=== PATIENT | male | born 1955 | race African-American/Black ===

== ENCOUNTER 2016-05-15 15:13 | Inpatient (IN) ==
[2016-05-15] MEDS ORDERED: TYLENOL PO ONE (15:40)
[2016-05-15] MEDS ORDERED: NS 1,000 ML IV ONE ×3 (16:13→18:57)
--- NOTE | 2016-05-15 16:16 | PROVIDER DOCUMENTATION ---
HPI-Fever - General Chief Complaint: Fever Stated Complaint: WEAKNESS,DIAHRRHEA Time Seen by Provider: 05/15/16 15:54 Source: patient, family Allergies/Adverse Reactions: Patient Allergies Allergy/AdvReac Type Severity Reaction Status Date / Time No Known Allergies Allergy Verified 03/14/15 17:42 Home Medications: Home Medication List Medication Instructions Recorded Confirmed Last Taken Type Hydrocodone/Acetaminophen [[place] 1 each PO BID 05/16/16 05/16/16 Unknown History 7.5-325 Tablet] - History of Present Illness-Fever Nature of Presenting Problem: 61 year old AAM presents with c/o weakness for 2-3 weeks with subjective fever/ chills, dysuria, and intermittent diarrhea for the last 2-3 days. pt reports he has been drinking a liter a day of gin and not consuming much solid food. he reports the weakness has been getting progressively worse. sister at bedside who is his primary caregiver reports she found her brother in his home this morning with the thermostat set at 90 and wrapped up in blankets. pt reports he was so weak he was unable to walk across the room. pt reports he has been having black tarry stools for "quite awhile." Fever Severity/Quality: reports: subjective Onset/Duration: reports: unsure Timing: reports: still present, constant, getting worse Severity: reports: mild Recent Illness?: reports: none Fever Therapy PATTERN MAKER: Initiated none Cognitive Baseline: alert, oriented x3 Modifying Factors: improves with: analgesics Associated Symptoms: reports: diarrhea, dizziness, fatigue, fever/chills, genitourinary problems, loss of appetite, malaise, muscle aches Similar Symptoms Previously?: No - [place] Coma Score Best Eye Response ([place]): (4) open spontaneously Best Verbal Response ([place]): (5) oriented Best Motor Response (Maximo): (6) obeys commands [place] Total: 15 Review of Systems - Adult - REVIEW OF SYSTEMS - ADULT Constitutional: reports: see HPI, chills, fever, fatique, weight loss Eyes: reports: no symptoms reported. denies: discharge, blurred vision, double vision, redness Ears, Nose, Mouth & Throat: reports: no symptoms reported. denies: ear discharge, ear pain, nose pain, loose teeth, throat pain, throat swelling Cardiovascular: reports: no symptoms reported. denies: chest pain, palpitations , poor circulation, syncope Respiratory: reports: see HPI, shortness of breath. denies: chronic cough, cough, wheezing Gastrointestinal: reports: see HPI, abdominal pain, diarrhea, poor appetite. denies: hematemesis, constipation, difficulty swallowing, frequent heartburn, nausea, rectal bleeding, vomiting Genitourinary: reports: no symptoms reported. denies: dysuria, hematuria, urgency Musculoskeletal: reports: see HPI, muscle weakness. denies: bone pain, joint pain, joint swelling, neck pain Integumentary: reports: no symptoms reported. denies: hives, itching, skin sores/ulcer Neurological: reports: see HPI, dizziness/vertigo, loss of balance. denies: ataxia, headache/migraines, numbness, paresthesia, seizure, slurred speech, syncope, tremors Psychiatric: reports: see HPI, alcohol/drug dependence Endocrine: reports: no symptoms reported Hematologic/Lymphatic: reports: no symptoms reported Allergic/Immunologic: reports: no symptoms reported All Other Systems: Reviewed and Negative Past History - Adult - PAST MEDICAL HISTORY-ADULT Review of Records: reports: Old Records Reviewed, Nursing Assessment Review, Medications Reviewed, Social history reviewed & non-contributory. Major Childhood Illnesses: reports: denies history Cardiovascular: reports: HTN Respiratory: reports: denies history Gastrointestinal: reports: denies history Obstetrical/Gynecological: reports: denies history Genitourinary: reports: denies history Musculoskeletal: reports: denies history Neurological: reports: denies history Psychiatric: reports: depression Endocrine/Immune: reports: denies history Other Conditions: reports: denies history - PRIOR SURGERIES/PROCEDURES Surgical/Procedure History: reports: none - IMMUNIZATION STATUS Childhood Immunizations: See Nurse Assessment Flu Vaccine: See Nurse Assessment - FAMILY HISTORY Family History: reviewed, not pertinent - SOCIAL HISTORY Smoking: cigarettes, greater than 1 pack/day Provider spent 3-5 mins advising pt. on dangers of tobacco.: Discussed manners to quit use, and f/u contacts for add'l counseling. Substance Use: alcohol Alcohol Use Frequency: every day Number of drinks per typical drinking period:: >20 drinks (pt reports he comsumes a liter a day of gin.) Living Situation: alone Physical Exam-General - PHYSICAL EXAM-ADULT Initial Vital Signs Reviewed: Yes - CONSTITUTIONAL General Appearance: appears well, alert, no apparent distress, cachetic, thin, other (weight loss, unknown amount over unknown period of time.). negative: mild distress, moderate distress - EYES Eyes: pink conjunctivae, scleral icterus, sunken eyes. negative: conjuctival exudate, pale conjunctivae - HEAD, EARS, NOSE, MOUTH & THROAT HENMT: normocephalic/atraumatic, moist mucous membranes, normal ENT inspection, TMs normal, pharynx normal - NECK Neck: non-tender, full range of motion, supple, normal inspection. negative: C- spine tenderness, limited range of motion, tender lateral, tender midline - RESPIRATORY Respiratory: chest non-tender, lungs clear, normal breath sounds, no pleuratic chest pain, no respiratory distress, no accessory muscle use. negative: respiratory distress, decreased breath sounds, accessory muscle use, crackles, rales, rhonchi, stridor, wheezing - CARDIOVASCULAR Cardiovascular: normal peripheral pulses, regular rate, rhythm, no edema, no gallop, no JVD, no murmur, tachycardia - GASTROINTESTINAL (ABDOMEN) Abdominal Exam: normal bowel sounds, soft, no organomegaly, no pulsatile mass, tenderness (diffuse). negative: non tender, distended, guarding, rigid - LYMPHATIC Lymphatic: no adenopathy. negative: cervical node tenderness - MUSCULOSKELETAL Back Exam: normal inspection, no CVA tenderness, no vertebral tenderness. negative: CVA tenderness, decreased range of motion, swelling, vertebral tenderness Extremity: normal range of motion, non-tender, normal gait, normal inspection, no pedal edema, no calf tenderness, normal capillary refill, pelvis stable. negative: deformity, erythema, inflammation, joint effusion, slow capillary refill, swelling, tenderness Peripheral Pulses: radial (R): 3+, radial (L): 3+, dorsalis-pedis (R): 3+, dorsalis-pedis (L): 3+ - SKIN Integumentary: normal color, normal turgor, warm/dry. negative: blanching, cyanosis, pallor, petechiae, purpura, rash - NEUROLOGIC Neurologic: grossly normal, no motor/sensory deficits - PSYCHIATRIC Psych/Mental Status: normal mood/affect, normal thought content, normal thought process, oriented x 3 Progress - PLAN OF CARE/RESULTS Progress/Plan/Lab Results: Laboratory Results - last 24 hr 05/15/16 05/15/16 05/15/16 15:30 16:30 16:45 Magnesium Plasma Lactate 2.7 H Urine Source CLEAN CATCH Urine Color YELLOW Urine Clarity SL. CLOUDY A Urine pH 5.0 Ur Specific [place] 1.025 Urine Protein TRACE A Urine Ketones TRACE Urine Blood TRACE Urine Nitrite POSITIVE A Urine Bilirubin NEGATIVE Urine Urobilinogen NORMAL Urine Microscopic RBC <10 Urine WBC 1+ A Urine Microscopic WBC <10 Urine Glucose NEGATIVE Urine Opiates Screen Ur Oxycodone Screen Urine Methadone Screen Ur Barbituates Screen Ur Tricyclics Screen Ur Phencyclidine Scrn Ur Amphetamines Screen U Methamphetamines Scrn Urine MDMA Screen U Benzodiazepines Scrn Urine Cocaine Screen U Cannabinoids Screen Acetone Level Blood Type O POSITIVE Antibody Screen NEGATIVE 05/15/16 05/15/16 05/15/16 16:45 17:00 17:00 Magnesium 1.6 Plasma Lactate Urine Source Urine Color Urine Clarity Urine pH Ur Specific [place] Urine Protein Urine Ketones Urine Blood Urine Nitrite Urine Bilirubin Urine Urobilinogen Urine Microscopic RBC Urine WBC Urine Microscopic WBC Urine Glucose Urine Opiates Screen Cancelled Ur Oxycodone Screen Cancelled Urine Methadone Screen Cancelled Ur Barbituates Screen Cancelled Ur Tricyclics Screen Cancelled Ur Phencyclidine Scrn Cancelled Ur Amphetamines Screen Cancelled U Methamphetamines Scrn Cancelled Urine MDMA Screen Cancelled U Benzodiazepines Scrn Cancelled Urine Cocaine Screen Cancelled U Cannabinoids Screen Cancelled Acetone Level NEGATIVE Blood Type Antibody Screen 05/15/16 17:30 Magnesium Plasma Lactate Urine Source Urine Color Urine Clarity Urine pH Ur Specific [place] Urine Protein Urine Ketones Urine Blood Urine Nitrite Urine Bilirubin Urine Urobilinogen Urine Microscopic RBC Urine WBC Urine Microscopic WBC Urine Glucose Urine Opiates Screen NONE DETECTED Ur Oxycodone Screen NONE DETECTED Urine Methadone Screen NONE DETECTED Ur Barbituates Screen NONE DETECTED Ur Tricyclics Screen NONE DETECTED Ur Phencyclidine Scrn NONE DETECTED Ur Amphetamines Screen NONE DETECTED U Methamphetamines Scrn NONE DETECTED Urine MDMA Screen NONE DETECTED U Benzodiazepines Scrn NONE DETECTED Urine Cocaine Screen NONE DETECTED U Cannabinoids Screen PRESUMPTIVE POSITIVE A Acetone Level Blood Type Antibody Screen Orders Category Date Time Status Orthostatic Vital Signs NOW Care 05/15/16 16:13 Active Saline Loc DIRECTED Care 05/15/16 16:12 Active Saline Loc NOW Care 05/15/16 18:11 Completed NPO Diet 05/15/16 16:12 Completed CHEST-2 VIEWS [RAD] Stat Exams 05/15/16 17:59 Draft HEAD W/O CONTRAST [CT] Stat Exams 05/15/16 17:56 Draft ACETONE SERUM [CHEM] Stat Lab 05/15/16 17:00 Completed AMMONIA [CHEM] Stat Lab 05/15/16 16:30 Completed AMYLASE [CHEM] Stat Lab 05/15/16 16:30 Completed BLOOD CULTURE [BLDCUL] Stat Lab 05/15/16 15:40 Results C DIFF TOXIN PL Stat Lab 05/15/16 18:52 Ordered CBC WITH ELECTRONIC DIFF [HEME] Stat Lab 05/15/16 16:30 Completed COMPREHENSIVE METABOLIC PANEL [CHEM] Stat Lab 05/15/16 16:30 Completed ETOH [ALCOHOL BLOOD] Stat Lab 05/15/16 16:30 Completed Flu [INFLUENZA SCREEN PL] Stat Lab 05/15/16 15:20 Completed LACTATE, PLASMA [CHEM] Stat Lab 05/15/16 15:30 Completed LIPASE [CHEM] Stat Lab 05/15/16 16:30 Completed MAGNESIUM [CHEM] Stat Lab 05/15/16 17:00 Completed OCCULT BLOOD SCREEN STOOL PL Stat Lab 05/15/16 18:52 Uncollected PROTIME WITH INR PL [COAG] Stat Lab 05/15/16 16:[address] [COAG] Stat Lab 05/15/16 16:30 Completed STOOL CULTURE [RM] Stat Lab 05/15/16 18:52 Uncollected TYPE & SCREEN [BBK] Stat Lab 05/15/16 16:[address] W/POSS RFLX CULT [URINALYSIS] Stat Lab 05/15/16 16:45 Completed URINE DRUG SCREEN PL Routine Lab 05/15/16 17:30 Completed WBC STOOL [STOOL] Stat Lab 05/15/16 18:52 Uncollected 0.9% Sodium Chloride Inj [Ns] 1,000 ml Med 05/15/16 16:28 Discontinued IV 150 mls/hr 0.9% Sodium Chloride Inj [Ns] 1,000 ml Med 05/15/16 16:13 Discontinued IV 999 mls/hr 0.9% Sodium Chloride Inj [Ns] 1,000 ml Med 05/15/16 18:57 Discontinued IV 999 mls/hr Acetaminophen [Tylenol] Med 05/15/16 15:40 Discontinued 650 mg PO NOW ONE Azithromycin 500 mg/Ns [Zithromax 500 mg/Ns] Med 05/15/16 18:52 Discontinued 500 mg in 250 ml IV NOW CefTRIAXONE 1 GM/NS [Rocephin 1 gm/Ns] Med 05/15/16 18:11 Discontinued 1 gm in 50 ml IV NOW Potassium Chloride 10 Meq/Swi Med 05/15/16 17:44 Discontinued 10 meq in 100 ml IV ONCE Potassium Chloride 10 Meq/Swi Med 05/15/16 18:53 Discontinued 10 meq in 100 ml IV ONCE Potassium Chloride E.r. [Klor-Con] Med 05/15/16 17:46 Discontinued 40 meq PO NOW ONE Vital Signs - 24 hr 05/15/16 15:33 05/15/16 16:40 Temperature 100.3 F H Pulse Rate 119 H Pulse Rate [Sitting] 111 H Pulse Rate [Standing] 118 H Pulse Rate [Supine] 100 H Respiratory Rate 18 Blood Pressure 146/74 Blood Pressure [Sitting] 106/63 Blood Pressure [Standing] 88/58 Blood Pressure [Supine] 119/65 Reviewed radiology, labs with Dr. Goldberg, agrees with plan of care, admission. 1930: Dr. Naranjo at bedside for admission. Laboratory Tests 05/15/16 05/15/16 05/15/16 15:20 15:30 16:30 WBC RBC Hgb Hct MCV MCH MCHC RDW Std Deviation Plt Count MPV Immature Gran % (Auto) Neut % (Auto) Lymph % (Auto) [place] % (Auto) Eos % (Auto) Baso % (Auto) Immature Gran # (Auto) Neut # (Auto) Lymph # (Auto) [place] # (Auto) Eos # (Auto) Baso # (Auto) PT INR APTT (Factor Assay) Sodium 132 L Potassium 2.1 L* Chloride 88 L Carbon Dioxide 28 Anion Gap 16 BUN 15 Creatinine 1.0 Estimated GFR/1.73 m2 > 60 BUN/Creatinine Ratio 15 Glucose 199 H Calculated Osmolality 271 Calcium 8.7 L Magnesium Total Bilirubin 1.50 H AST 71 H ALT 35 Alkaline Phosphatase 89 Ammonia Total Protein 7.9 Albumin 3.3 L Globulin 5.0 Albumin/Globulin Ratio 1.0 Amylase 67 Lipase 30 Plasma Lactate 2.7 H Urine Source Urine Color Urine Clarity Urine pH Ur Specific [place] Urine Protein Urine Ketones Urine Blood Urine Nitrite Urine Bilirubin Urine Urobilinogen Urine Microscopic RBC Urine WBC Urine Microscopic WBC Urine Glucose Urine Opiates Screen Ur Oxycodone Screen Urine Methadone Screen Ur Barbituates Screen Ur Tricyclics Screen Ur Phencyclidine Scrn Ur Amphetamines Screen U Methamphetamines Scrn Urine MDMA Screen U Benzodiazepines Scrn Urine Cocaine Screen U Cannabinoids Screen Plasma/Serum Ethyl Alc Acetone Level Influenza A (Rapid) NEGATIVE Influenza B (Rapid) NEGATIVE Blood Type Antibody Screen 05/15/16 05/15/16 05/15/16 16:30 16:30 16:30 WBC 11.20 H RBC 3.27 L Hgb 11.0 L Hct 32.9 L MCV 100.6 H MCH 33.6 H MCHC 33.4 RDW Std Deviation 12.4 Plt Count 195 MPV 10.5 H Immature Gran % (Auto) 1.3 H Neut % (Auto) 83.2 H Lymph % (Auto) 6.4 L Parke % (Auto) 8.8 Eos % (Auto) 0.1 Baso % (Auto) 0.2 Immature Gran # (Auto) 0.15 H Neut # (Auto) 9.32 H Lymph # (Auto) 0.72 L [place] # (Auto) 0.98 H Eos # (Auto) 0.01 Baso # (Auto) 0.02 PT INR APTT (Factor Assay) Sodium Potassium Chloride Carbon Dioxide Anion Gap BUN Creatinine Estimated GFR/1.73 m2 BUN/Creatinine Ratio Glucose Calculated Osmolality Calcium Magnesium Total Bilirubin AST ALT Alkaline Phosphatase Ammonia 38 Total Protein Albumin Globulin Albumin/Globulin Ratio Amylase Lipase Plasma Lactate Urine Source Urine Color Urine Clarity Urine pH Ur Specific [place] Urine Protein Urine Ketones Urine Blood Urine Nitrite Urine Bilirubin Urine Urobilinogen Urine Microscopic RBC Urine WBC Urine Microscopic WBC Urine Glucose Urine Opiates Screen Ur Oxycodone Screen Urine Methadone Screen Ur Barbituates Screen Ur Tricyclics Screen Ur Phencyclidine Scrn Ur Amphetamines Screen U Methamphetamines Scrn Urine MDMA Screen U Benzodiazepines Scrn Urine Cocaine Screen U Cannabinoids Screen Plasma/Serum Ethyl Alc 72 H Acetone Level Influenza A (Rapid) Influenza B (Rapid) Blood Type Antibody Screen 05/15/16 05/15/16 05/15/16 16:30 16:30 16:45 WBC RBC Hgb Hct MCV MCH MCHC RDW Std Deviation Plt Count MPV Immature Gran % (Auto) Neut % (Auto) Lymph % (Auto) Parke % (Auto) Eos % (Auto) Baso % (Auto) Immature Gran # (Auto) Neut # (Auto) Lymph # (Auto) [place] # (Auto) Eos # (Auto) Baso # (Auto) PT 12.9 INR 0.94 APTT (Factor Assay) 39.7 Sodium Potassium Chloride Carbon Dioxide Anion Gap BUN Creatinine Estimated GFR/1.73 m2 BUN/Creatinine Ratio Glucose Calculated Osmolality Calcium Magnesium Total Bilirubin AST ALT Alkaline Phosphatase Ammonia Total Protein Albumin Globulin Albumin/Globulin Ratio Amylase Lipase Plasma Lactate Urine Source CLEAN CATCH Urine Color YELLOW Urine Clarity SL. CLOUDY A Urine pH 5.0 Ur Specific [place] 1.025 Urine Protein TRACE A Urine Ketones TRACE Urine Blood TRACE Urine Nitrite POSITIVE A Urine Bilirubin NEGATIVE Urine Urobilinogen NORMAL Urine Microscopic RBC <10 Urine WBC 1+ A Urine Microscopic WBC <10 Urine Glucose NEGATIVE Urine Opiates Screen Ur Oxycodone Screen Urine Methadone Screen Ur Barbituates Screen Ur Tricyclics Screen Ur Phencyclidine Scrn Ur Amphetamines Screen U Methamphetamines Scrn Urine MDMA Screen U Benzodiazepines Scrn Urine Cocaine Screen U Cannabinoids Screen Plasma/Serum Ethyl Alc Acetone Level Influenza A (Rapid) Influenza B (Rapid) Blood Type O POSITIVE Antibody Screen NEGATIVE 05/15/16 05/15/16 05/15/16 16:45 17:00 17:00 WBC RBC Hgb Hct MCV MCH MCHC RDW Std Deviation Plt Count MPV Immature Gran % (Auto) Neut % (Auto) Lymph % (Auto) [place] % (Auto) Eos % (Auto) Baso % (Auto) Immature Gran # (Auto) Neut # (Auto) Lymph # (Auto) [place] # (Auto) Eos # (Auto) Baso # (Auto) PT INR APTT (Factor Assay) Sodium Potassium Chloride Carbon Dioxide Anion Gap BUN Creatinine Estimated GFR/1.73 m2 BUN/Creatinine Ratio Glucose Calculated Osmolality Calcium Magnesium 1.6 Total Bilirubin AST ALT Alkaline Phosphatase Ammonia Total Protein Albumin Globulin Albumin/Globulin Ratio Amylase Lipase Plasma Lactate Urine Source Urine Color Urine Clarity Urine pH Ur Specific [place] Urine Protein Urine Ketones Urine Blood Urine Nitrite Urine Bilirubin Urine Urobilinogen Urine Microscopic RBC Urine WBC Urine Microscopic WBC Urine Glucose Urine Opiates Screen Cancelled Ur Oxycodone Screen Cancelled Urine Methadone Screen Cancelled Ur Barbituates Screen Cancelled Ur Tricyclics Screen Cancelled Ur Phencyclidine Scrn Cancelled Ur Amphetamines Screen Cancelled U Methamphetamines Scrn Cancelled Urine MDMA Screen Cancelled U Benzodiazepines Scrn Cancelled Urine Cocaine Screen Cancelled U Cannabinoids Screen Cancelled Plasma/Serum Ethyl Alc Acetone Level NEGATIVE Influenza A (Rapid) Influenza B (Rapid) Blood Type Antibody Screen 05/15/16 17:30 WBC RBC Hgb Hct MCV MCH MCHC RDW Std Deviation Plt Count MPV Immature Gran % (Auto) Neut % (Auto) Lymph % (Auto) [place] % (Auto) Eos % (Auto) Baso % (Auto) Immature Gran # (Auto) Neut # (Auto) Lymph # (Auto) [place] # (Auto) Eos # (Auto) Baso # (Auto) PT INR APTT (Factor Assay) Sodium Potassium Chloride Carbon Dioxide Anion Gap BUN Creatinine Estimated GFR/1.73 m2 BUN/Creatinine Ratio Glucose Calculated Osmolality Calcium Magnesium Total Bilirubin AST ALT Alkaline Phosphatase Ammonia Total Protein Albumin Globulin Albumin/Globulin Ratio Amylase Lipase Plasma Lactate Urine Source Urine Color Urine Clarity Urine pH Ur Specific [place] Urine Protein Urine Ketones Urine Blood Urine Nitrite Urine Bilirubin Urine Urobilinogen Urine Microscopic RBC Urine WBC Urine Microscopic WBC Urine Glucose Urine Opiates Screen NONE DETECTED Ur Oxycodone Screen NONE DETECTED Urine Methadone Screen NONE DETECTED Ur Barbituates Screen NONE DETECTED Ur Tricyclics Screen NONE DETECTED Ur Phencyclidine Scrn NONE DETECTED Ur Amphetamines Screen NONE DETECTED U Methamphetamines Scrn NONE DETECTED Urine MDMA Screen NONE DETECTED U Benzodiazepines Scrn NONE DETECTED Urine Cocaine Screen NONE DETECTED U Cannabinoids Screen PRESUMPTIVE POSITIVE A Plasma/Serum Ethyl Alc Acetone Level Influenza A (Rapid) Influenza B (Rapid) Blood Type Antibody Screen Orders Category Date Time Status Admit - [facility] Routine AdmDCTranf 05/15/16 19:47 Ordered Orthostatic Vital Signs NOW Care 05/15/16 16:13 Active Saline Loc DIRECTED Care 05/15/16 16:12 Active Saline Loc NOW Care 05/15/16 18:11 Completed Case Management Consult Routine Cons 05/15/16 23:43 Active Social Service Consult Routine Cons 05/15/16 23:43 Active Heart Healthy Diet Diet 05/16/16 15:16 Active NPO Diet 05/15/16 16:12 Completed CHEST-2 VIEWS [RAD] Stat Exams 05/15/16 17:59 Draft HEAD W/O CONTRAST [CT] Stat Exams 05/15/16 17:56 Draft cxr [CHEST-PORTABLE] [RAD] Routine Exams 05/16/16 16:05 Ordered ACETONE SERUM [CHEM] Stat Lab 05/15/16 17:00 Completed AMMONIA [CHEM] Stat Lab 05/15/16 16:30 Completed AMYLASE [CHEM] Stat Lab 05/15/16 16:30 Completed BLOOD CULTURE [BLDCUL] Stat Lab 05/15/16 15:40 Results C DIFF TOXIN PL Stat Lab 05/15/16 18:52 Ordered CBC WITH DIFF [HEME] Routine Lab 05/17/16 06:00 Ordered CBC WITH ELECTRONIC DIFF [HEME] Stat Lab 05/15/16 16:30 Completed COMPREHENSIVE METABOLIC PANEL [CHEM] Stat Lab 05/15/16 16:30 Completed Chem22 [COMPREHENSIVE METABOLIC PANEL] [CHEM] Routine Lab 05/17/16 06:00 Ordered ETOH [ALCOHOL BLOOD] Stat Lab 05/15/16 16:30 Completed FOLATE Routine Lab 05/17/16 06:00 Ordered FREE T4 Routine Lab 05/17/16 06:00 Ordered Flu [INFLUENZA SCREEN PL] Stat Lab 05/15/16 15:20 Completed LACTATE, PLASMA [CHEM] Stat Lab 05/15/16 15:30 Completed LIPASE [CHEM] Stat Lab 05/15/16 16:30 Completed MAGNESIUM [CHEM] Routine Lab 05/17/16 06:00 Ordered MAGNESIUM [CHEM] Stat Lab 05/15/16 17:00 Completed OCCULT BLOOD SCREEN STOOL PL Stat Lab 05/15/16 18:52 Uncollected PROTIME WITH INR PL [COAG] Stat Lab 05/15/16 16:[address] [COAG] Stat Lab 05/15/16 16:30 Completed STOOL CULTURE [RM] Stat Lab 05/15/16 18:52 Uncollected TSH Routine Lab 05/17/16 06:00 Ordered TYPE & SCREEN [BBK] Stat Lab 05/15/16 16:[address] W/POSS RFLX CULT [URINALYSIS] Stat Lab 05/15/16 16:45 Completed URINE DRUG SCREEN PL Routine Lab 05/15/16 17:30 Completed VITAMIN B12 Routine Lab 05/17/16 06:00 Ordered WBC STOOL [STOOL] Stat Lab 05/15/16 18:52 Uncollected 0.9% Sodium Chloride Inj [Ns] 1,000 ml Med 05/15/16 16:28 Discontinued IV 150 mls/hr 0.9% Sodium Chloride Inj [Ns] 1,000 ml Med 05/15/16 16:13 Discontinued IV 999 mls/hr 0.9% Sodium Chloride Inj [Ns] 1,000 ml Med 05/15/16 18:57 Discontinued IV 999 mls/hr Acetaminophen [Tylenol] Med 05/15/16 15:40 Discontinued 650 mg PO NOW ONE Acetaminophen [Tylenol] Med 05/16/16 01:36 Active 650 mg PO Q4H PRN PRN Azithromycin 500 mg/Ns [Zithromax 500 mg/Ns] Med 05/15/16 18:52 Discontinued 500 mg in 250 ml IV NOW CefTRIAXONE 1 GM/NS [Rocephin 1 gm/Ns] Med 05/15/16 18:11 Discontinued 1 gm in 50 ml IV NOW Ns + KCl 20 Meq 1,000 ml Med 05/15/16 19:57 Active IV 125 mls/hr Pantoprazole [Protonix] Med 05/15/16 20:00 Active 40 mg IV Q12H Potassium Chloride 10 Meq/Swi Med 05/15/16 17:44 Discontinued 10 meq in 100 ml IV ONCE Potassium Chloride 10 Meq/Swi Med 05/15/16 18:53 Discontinued 10 meq in 100 ml IV ONCE Potassium Chloride E.r. [Klor-Con] Med 05/15/16 17:46 Discontinued 40 meq PO NOW ONE Sodium Chloride 0.9% Med 05/15/16 20:00 Active 10 ml INJ DIRECTED Sodium Chloride 0.9% 10 ml Med 05/15/16 21:40 Discontinued .ROUTE As Directed Vital Signs - 24 hr 05/15/16 20:00 05/16/16 00:00 05/16/16 04:00 Temperature 98.5 F 100.8 F H 99.0 F Pulse Rate 93 H 98 H 83 Respiratory Rate 18 18 18 Blood Pressure 138/74 154/89 154/79 O2 Sat by Pulse Oximetry 95 05/16/16 07:34 05/16/16 12:00 Temperature 98.6 F 98.4 F Pulse Rate 84 79 Respiratory Rate 16 16 Blood Pressure 158/85 146/81 O2 Sat by Pulse Oximetry 100 100 Result Diagrams: 05/15/16 16:30 05/15/16 16:30 - XRAY 1 XRAY Study: Chest Impression: Abnormal (RLL, RML pneumonia) - CT/MRI 1 CT Study: Head Impression: Normal - CONSULTS/PCP/HOSPITALIST Notification #1 *Consult/PCP/Hospitalist*: Dr. Naranjo Time Discussed: 18:57 Consult Disposition: Will see in ED, Admit Departure - Departure Time of Disposition Decision: 17:48 DIAGNOSIS: Hypokalemia, Weakness, ETOH abuse Fever Qualifiers: Fever type: unspecified Qualified Code(s): R50.9 - Fever, unspecified Pneumonia Qualifiers: Pneumonia type: due to unspecified organism Laterality: right Lung location: middle lobe of lung Qualified Code(s): J18.1 - Lobar pneumonia, unspecified organism Disposition: HOME 01 Certified Medical Emergency: Emergent Condition: Stable Attestation - Physician/ JOHN Attestation Patient care was provided by Advanced Practice Provider:: Yes Advanced Practice Provider:: Sho Moran Advanced Practice Provider documentation review:: The Mid-level provider documentation, treatment plan and medical decision making was reviewed by the physician who agrees with all treatment and medical decision making by the MLP.
[2016-05-15 16:44] LABS: MANUAL DIFF NEEDED? NO
[2016-05-15 16:47] LABS: BASO% 0.2 % (0.0-0.8); EOS# 0.01 X1000 (0.0-0.7); EOS% 0.1 % (0.0-10.0); HEMATOCRIT 32.9 % (42.0-52.0); IMM GRAN# 0.15 X1000 (0.0-0.04); IMM GRAN% 1.3 % (0.0-0.5); LYMPH# 0.72 X1000 (1.2-3.4); LYMPH% 6.4 % (20.5-51.1); MCH 33.6 PG (27-31); MCHC 33.4 g/dL (33-37); MCV 100.6 FL (81-99); MONO# 0.98 X1000 (0.11-0.59); MONO% 8.8 % (1.7-9.3); MPV 10.5 FL (7.4-10.4); NEUT% 83.2 % (42.2-75.2); PLT 195 X1000 (130-400); RBC 3.27 XMIL (4.7-6.1)
[2016-05-15 17:04] LABS: INR 0.94 (0.86-1.15); PROTIME 12.9 Seconds (12.1-15.5)
[2016-05-15 17:05] LABS: PTT PL 39.7 Seconds (22.6-43.9)
[2016-05-15 17:07] LABS: AGAP 16; ALBUMIN 3.3 g/dL (3.5-5.0); ALKALINE PHOSPHATASE 89 U/L (32-122); AMYLASE 67 U/L (20-200); BUN 15 mg/dL (8-22); CALCIUM 8.7 mg/dL (8.8-10.2); CHLORIDE 88 mmol/L (98-107); COSMO 271; GOT 71 U/L (10-34); GPT 35 U/L (10-44); LIPASE 30 U/L (13-60); SODIUM 132 mmol/L (136-145); TCO2 28 mmol/L (25-35); TOTAL PROTEIN 7.9 g/dL (6.3-8.3)
[2016-05-15 17:07] LABS: URINE CULTURE PL NEEDED? NO
[2016-05-15 17:10] LABS: POTASSIUM 2.1 mmol/L (3.5-5.1)
[2016-05-15] MEDS ORDERED: POTASSIUM CHLORIDE 10 MEQ/SWI 10 MEQ/100 ML IVPB IV ONE ×2 (17:44→18:53)
[2016-05-15] MEDS ORDERED: KLOR-CON PO ONE (17:46)
[2016-05-15 18:05] LABS: UR AMPHETAMINES QUAL NONE DETECTED (NONE DETECT); UR BARBITUATES QUAL NONE DETECTED (NONE DETECT); UR BENZODIAZEPIN QUAL NONE DETECTED (NONE DETECT); UR CANNABINOIDS QUAL PRESUMPTIVE POSITIVE (NONE DETECT); UR COCAINE QUAL NONE DETECTED (NONE DETECT); UR MDMA QUAL NONE DETECTED (NONE DETECT); UR METHADONE QUAL NONE DETECTED (NONE DETECT); UR METHAMPHETAMINE QUAL NONE DETECTED (NONE DETECT); UR OPIATES QUAL NONE DETECTED (NONE DETECT); UR OXYCODONE QUAL NONE DETECTED (NONE DETECT); UR PCP QUAL NONE DETECTED (NONE DETECT); UR TCA QUAL NONE DETECTED (NONE DETECT)
[2016-05-15 18:07] LABS: BILIRUBIN URINE NEGATIVE (NEGATIVE); BLOOD URINE TRACE (NEGATIVE); CLARITY SL. CLOUDY (CLEAR); COLOR YELLOW; GLUCOSE URINE NEGATIVE (NEGATIVE); LEUKOCYTES URINE 1+ (NEGATIVE); NITRITE URINE POSITIVE (NEGATIVE); PROTEIN URINE TRACE mg/dL (NEGATIVE); SP GRAVITY URINE 1.025; UROBILINOGEN URINE NORMAL
[2016-05-15 18:08] LABS: URINE SOURCE CLEAN CATCH
[2016-05-15 18:09] LABS: URINE RBC <10 /HPF (<10); URINE WBC <10 /HPF (<10)
[2016-05-15] MEDS ORDERED: ROCEPHIN 1 GM/NS 1 GM/50 ML IVPB IV ONE (18:11)
[2016-05-15] MEDS ORDERED: ZITHROMAX 500 MG/NS 500 MG/250 ML IVPB IV ONE (18:52)
[2016-05-15] MEDS ORDERED: SODIUM CHLORIDE 0.9% 10 ML ONE (21:40)
--- NOTE | 2016-05-15 21:43 | Diag Imaging Result Document ---
PROCEDURE NAME: HEAD W/O CONTRAST - 05/15/2016 CT OF THE HEAD: A CT dose reduction protocol was used. COMPARISON: None. 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 There is some mild scattered chronic microvascular disease. No intracranial mass or hemorrhage. Old lacune at the left basal ganglia. There is chronic sinusitis of the right maxillary sinus. IMPRESSION: Chronic changes as described above. No acute disease. [facility]
[2016-05-15] MEDS: PROTONIX IV SCH (21:48)
[2016-05-15] MEDS: NS + KCL 20 MEQ 1,000 ML IV SCH (21:49)
[2016-05-16] MEDS ORDERED: TYLENOL PO PRN (01:36)
--- NOTE | 2016-05-16 03:20 | HISTORY AND PHYSICAL ---
HISTORY OF PRESENT ILLNESS: This is a 61-year-old who has apparently been feeling bad. He had lost his just about a month ago, been drinking well over a quart a day of alcohol. History of alcoholism in the past. His family tried to get him to come to the door. He would not answer the phone. He was too week, complaining of some diarrhea. PAST MEDICAL HISTORY: 1. Discoid lupus. 2. Osteoarthritis. 3. Benign prostatic hypertrophy. 4. He denies fever or chills. 5. He also has a history of gout. 6. Prior cerebrovascular accident. 7. Sleep disorder. 8. Hypertension. PAST SURGICAL HISTORY: He has had back surgery in the past, kyphoplasty on T6 I believe, fall related to work. FAMILY HISTORY: Noncontributory except for father had colon cancer. ALLERGIES: No known drug allergies. SOCIAL HISTORY: Drinks pretty heavily and no tobacco. REVIEW OF SYSTEMS: Constitutional: Feels like he has lost weight. He feels much weaker. HEENT: He denies any change in vision. Respiratory: No increased work of breathing or dyspnea. Cardiovascular: No chest pain or tachy palpitation. GI: Unremarkable. : Unremarkable. Musculoskeletal/Neurologic: No complaints other than general weakness. PHYSICAL EXAMINATION: VITAL SIGNS: In the emergency room at [facility], temperature was a 100.3 degrees, pulse 119, respirations 18, blood pressure 146/74. Sitting, his pulse was 111, blood pressure 106/63. Standing pulse 118, blood pressure 80/58. Supine pulse 100, blood pressure 119/65. Weight 135 pounds, height 5 feet 10 inches. HEENT: The pupils were equal, round. LUNGS: Clear in all lung shah. Clear anterior and posterior. CARDIOVASCULAR: Regular rhythm and rate without murmur or S3. ABDOMEN: Soft. SKIN: Warm and dry. He has vitiligo of his forehead and patches from his discoid lupus. LABORATORIES: White count 11,200, hematocrit 32, platelet count 195,000. Sodium 132, potassium 2.1, chloride 88, bicarb 28, BUN 15, creatinine 1, blood sugar 199, calcium 8.7, magnesium 1.6. Total bilirubin was 1.5. Transaminases, AST 71, ALT 35. Ammonia is 38, albumin 3.3, amylase 67, lipase 30. Prothrombin time is 12.9, PTT is 39. Influenza A and B were negative. Drug screen negative except for cannabinoids and positive for alcohol, ethanol level was 72 mg/dL. Urinalysis unremarkable. MEDICATIONS AT HOME: He is supposed to be on allopurinol 300 mg a day, alprazolam 0.5 mg daily, Cardiotek vitamin I think 1 a day, Proscar 5 mg daily, tamsulosin 0.4 mg at bedtime. ASSESSMENT AND PLAN: 1. X-ray suggested pneumonia. Patient very weak and puny. He does not have an elevated white count. Potassium is very low. We will give him some fluid. We will give some potassium and see if he feels a little better. We will put him on some Rocephin 1 g daily. 2. History of alcoholism. Very strong possibility he could go through alcohol withdrawals, even delirium tremens. Aware of that. 3. Depression. 4. Anorexia, not eating much. We will see if we can encourage and get oral intake. 5. He does have a history gout. 6. History of benign prostatic hypertrophy. 7. History of prior cerebrovascular accident, aware. cc: Dennys Walls MD
[2016-05-16] MEDS: NS + KCL 20 MEQ 1,000 ML IV SCH ×5 (03:26→22:36)
[2016-05-16] MEDS: PROTONIX IV SCH ×2 (09:40→22:31)
--- NOTE | 2016-05-16 11:36 | Diag Imaging Result Document ---
PROCEDURE NAME: CHEST-2 VIEWS - 05/15/2016 CHEST, 2 VIEWS: COMPARISON: 03/14/2015. FINDINGS: There is worsening ill-defined infiltrate in the right lower lobe and right mid lung, probably the right upper lobe as well. Lung volumes are low with increasing linear atelectasis or scarring in the lung bases. Stable vertebroplasty changes in the mid and lower thoracic spine. No obvious new fractures. No pneumothorax or large effusion. IMPRESSION: New bilateral infiltrates compatible with pneumonia.
[2016-05-16] MEDS ORDERED: BISMATROL PO PRN (17:29)
--- NOTE | 2016-05-16 17:34 | PROGRESS NOTE ---
DATE: 05/16/2016 SUBJECTIVE: He is sitting up. Feeling much better. States he is eating pretty good. Alert and oriented x3. His family is at bedside. OBJECTIVE: Vital signs: Temperature 98.4 degrees, pulse 79, respirations 16, blood pressure 140/81. HEENT: Pupils are equal and round. Neck: CVP less than 6 cm. Lungs: Clear in all lung shah. Cardiovascular: Regular rhythm and rate without murmur or S3. URINE OUTPUT: 2600 mL. LABORATORIES: Reviewed from yesterday white count 11,200, hematocrit 32, platelet count a 195,000. Chemistries was sodium 132, potassium 2.1, chloride 88, bicarb 28, BUN 15, creatinine 1.0, albumin was 3.3. ASSESSMENT AND PLAN: 1. Appears to show pneumonia on x-ray, elevated white count. Continue present antibiotics, Rocephin, and breathing treatments. Appears clinically better. 2. Alcoholism. He has been off alcohol, will be going on 72 hours. No sign of significant withdrawals, but still possibility of delirium tremens. 3. Depression. 4. Anorexia and depression. Just lost his and is not eating much. 5. History of gout. 6. History of benign prostatic hypertrophy. 7. History of prior cerebrovascular accident. He had a CT of his head without contrast, which is unremarkable. Check some blood work again in the morning. We will supplement some more potassium. Reviewed his orders. No changes. cc: Dennys Walls MD
[2016-05-16] MEDS ORDERED: IMODIUM PO PRN (19:52)
[2016-05-16] MEDS ORDERED: ATIVAN PO PRN (19:52)
[2016-05-16] MEDS: ROCEPHIN 1 GM/NS 1 GM/50 ML IVPB IV SCH (22:31)
[2016-05-17] MEDS: NS + KCL 20 MEQ 1,000 ML IV SCH ×2 (04:56→15:21)
[2016-05-17 07:24] LABS: BASO% 0.4 % (0.0-0.8); EOS# 0.12 X1000 (0.0-0.7); EOS% 1.2 % (0.0-10.0); HEMATOCRIT 30.6 % (42.0-52.0); HEMOGLOBIN 10.2 g/dL (14.0-18.0); IMM GRAN# 0.11 X1000 (0.0-0.04); IMM GRAN% 1.1 % (0.0-0.5); LYMPH# 1.29 X1000 (1.2-3.4); LYMPH% 12.7 % (20.5-51.1); MANUAL DIFF NEEDED? YES; MCH 33.6 PG (27-31); MCHC 33.3 g/dL (33-37); MCV 100.7 FL (81-99); MONO# 0.86 X1000 (0.11-0.59); MONO% 8.4 % (1.7-9.3); MPV 11.6 FL (7.4-10.4); NEUT% 76.2 % (42.2-75.2); PLT 227 X1000 (130-400); RBC 3.04 XMIL (4.7-6.1)
--- NOTE | 2016-05-17 07:38 | Diag Imaging Result Document ---
PROCEDURE NAME: CHEST-PORTABLE - 05/16/2016 PORTABLE CHEST: Compared with 05/15/2016. There are bibasilar infiltrates with atelectasis. There is infiltrate at the right mid lung. These appear mildly decreased. There is no substantial pleural effusion, or pneumothorax identified. Heart size is normal. IMPRESSION: Mild decrease in bilateral infiltrates.
[2016-05-17] MEDS: DUONEB (A & A) INH PRN ×3 (07:45→19:22)
[2016-05-17 07:56] LABS: AGAP 10; ALBUMIN 2.6 g/dL (3.5-5.0); ALKALINE PHOSPHATASE 83 U/L (32-122); BUN 7 mg/dL (8-22); CALCIUM 7.9 mg/dL (8.8-10.2); CHLORIDE 96 mmol/L (98-107); COSMO 267; GOT 42 U/L (10-34); GPT 21 U/L (10-44); MAGNESIUM 1.2 mg/dL (1.5-2.7); SODIUM 134 mmol/L (136-145); TCO2 27 mmol/L (25-35); TOTAL PROTEIN 6.2 g/dL (6.3-8.3)
[2016-05-17 08:00] LABS: POTASSIUM 2.2 mmol/L (3.5-5.1)
[2016-05-17 08:02] LABS: FREE T4 2.12 ng/dL (0.93-1.70)
[2016-05-17] MEDS: SODIUM CHLORIDE 0.9% INJ SCH ×2 (08:40→20:40)
[2016-05-17] MEDS: PROTONIX IV SCH ×2 (08:40→20:40)
[2016-05-17 09:50] LABS: LYMPHS 10 % (21-51); MONO 5 % (1-9)
[2016-05-17] MEDS ORDERED: POTASSIUM CHLORIDE 20% LIQUID PO ONE (11:41)
[2016-05-17] MEDS ORDERED: MAGNESIUM SULFATE 2 GM/S.W.I. 2 GM/50 ML IVPB IV ONE (11:41)
[2016-05-17] MEDS ORDERED: NS 500 ML ONE (12:18)
[2016-05-17] MEDS: POTASSIUM CHLORIDE 20 MEQ/SWI 20 MEQ/100 ML IVPB IV SCH ×2 (12:24→17:47)
[2016-05-17] MEDS: MAG-OX PO SCH ×2 (12:30→20:39)
--- NOTE | 2016-05-17 12:40 | PROGRESS NOTE ---
DATE: 05/17/2016 SUBJECTIVE: Mr. Church is feeling better. He is eating a regular diet. Bowels have checked up some, not loose. He is ambulating without trouble. DIAGNOSTIC DATA: His potassium is still low. Sodium is 134, potassium 3.2, chloride 96, bicarb 27, BUN is 7, creatinine 0.6. White blood cell count 10,190, hematocrit 30. C. difficile was negative. His magnesium was 1.2, so we will supplement. Repeat chest x-ray was done yesterday and showed mild decrease in bilateral infiltrates. OBJECTIVE: Today, temperature is 98.3, pulse 70, respirations 18, blood pressure 153/84. Pupils are equal, round and reactive to light. Lungs: Clear in all lung shah. Cardiovascular: Regular rhythm and rate without murmur or S3. Abdomen: Soft. Skin: Warm and dry. ASSESSMENT AND PLAN: 1. Bilateral infiltrates. He is doing better. Respiratory status looks good. Stronger. White count has come down. Continue Rocephin. 2. Alcoholism. He has been off alcohol for over 72 hours, though did not have much in the way of withdrawal symptoms and did not go into delirium tremens. 3. Depression. 4. Anorexia with depression. Eating better at this time. 5. History of gout. 6. History of benign prostatic hypertrophy. 7. History of cerebrovascular accident in the past. 8. Hyponatremia and hypomagnesemia. We will supplement both of those. Hope to let him go home tomorrow. We had a long discussion about the importance of abstaining from alcohol. cc: Dennys Walls MD
[2016-05-17] MEDS: ROCEPHIN 1 GM/NS 1 GM/50 ML IVPB IV SCH (20:39)
[2016-05-17] MEDS: M.V.I.-12 10 ML, FOLIC ACID 1 MG, MAGNESIUM SULFATE 1 GM, THIAMINE 100 MG in NS 1,000 ML IV SCH (22:08)
[2016-05-18] MEDS: NS + KCL 20 MEQ 1,000 ML IV SCH (00:44)
[2016-05-18 07:24] LABS: AGAP 13; BUN 4 mg/dL (8-22); CALCIUM 7.9 mg/dL (8.8-10.2); CHLORIDE 99 mmol/L (98-107); COSMO 274; MAGNESIUM 1.5 mg/dL (1.5-2.7); SODIUM 138 mmol/L (136-145); TCO2 26 mmol/L (25-35)
[2016-05-18 07:29] LABS: POTASSIUM 2.4 mmol/L (3.5-5.1)
[2016-05-18] MEDS: DUONEB (A & A) INH PRN (07:52)
[2016-05-18 07:53] VITALS: BP 175/85
[2016-05-18] MEDS ORDERED: POTASSIUM CHLORIDE 20% LIQUID PO ONE (08:11)
--- NOTE | 2016-05-18 08:53 | DISCHARGE SUMMARY ---
ADMISSION DATE: 05/15/2016 DISCHARGE DATE: 05/18/2016 HISTORY AND HOSPITAL COURSE: This 61-year-old has been feeling bad for a while. He lost his about a month ago. He has been drinking pretty heavy, over a quart a day of alcohol. He has had a history of alcoholism in the past. Family came and he would not come to the door, very weak, despondent. They brought him to the emergency room. He has been complaining of some diarrhea. No fever or chills. He has not been eating well. He was admitted to the hospital and give him some IV fluids. He seemed to respond pretty well. Also appeared to have pneumonia on chest x- ray. Treated with some Rocephin. Clinically improved fairly quickly. He did have to supplement some potassium and magnesium. PAST MEDICAL HISTORY: 1. Discoid lupus. 2. Osteoarthritis. 3. Benign prostatic hypertrophy. 4. History of gout. 5. History of cerebrovascular accident in the past. 6. Sleep disorder. 7. Hypertension. 8. Alcoholism. PAST SURGICAL HISTORY: He had back surgery in the past, kyphoplasty on T6, I believe. This was related to a fall that he had at work. Patient counseled extensively on the importance of quitting alcohol. He did not go through significant withdrawal symptoms or delirium tremens. Stronger, eating normal diet, and felt he could go home on 05/18/2016. DISCHARGE MEDICATIONS: He was taking hydrocodone for pain. He was taking 10 mg twice a day. I do not see any other medication at this point that he needs to be on. I am probably going to keep him on Protonix 40 mg daily. FOLLOWUP: Follow up in my office in a couple of weeks. cc: Dennys Walls MD
[2016-05-18] MEDS: M.V.I.-12 10 ML, FOLIC ACID 1 MG, MAGNESIUM SULFATE 1 GM, THIAMINE 100 MG in NS 1,000 ML IV SCH (09:07)
[2016-05-18] MEDS: MAG-OX PO SCH (09:08)
[2016-05-18] MEDS: PROTONIX IV SCH (09:08)
--- NOTE | 2016-05-18 09:14 | PROGRESS NOTE ---
DATE: 05/18/2016 ADDENDUM: Note potassium is still 4.0. So, we gave him some more potassium, and I will send him home on Klor-Con 40 mEq daily. I am also going to send him home on some Mag-Ox, and he will take 800 mg twice a day. Renal function looks good. Serum creatinine 0.6. He is to follow me up in a couple weeks. He did have a little bit of nosebleed and had some gauze in his nose, but he is adamant that he wants to go home. So, we will plan on discharge. cc: Dennys Walls MD
== END 2016-05-18 11:37 | disposition home health service (06) ==
LOC: SUPCPDRO → P.ED 15:13 → P.MEDSURG 19:44
PROVIDERS: ADMIT Emergency Medicine; ATTEND Emergency Medicine